=== PATIENT | female | born 1945 | race Asian ===

== ENCOUNTER 2016-09-06 19:28 | Emergency (ER) | payer MEDICARE, OTHER ==
[~2016-09-06] VITALS: Ht 154.9 cm; Wt 58.1 kg
[2016-09-06] MEDS ORDERED: GLUCOTROL XL5 MG PO (21:23)
[2016-09-06] MEDS ORDERED: GLUCOPHAGE XR500 MG PO (21:24)
[2016-09-06] MEDS ORDERED: ZYLOPRIM100 M1 PO (21:26)
[2016-09-06] MEDS ORDERED: LIPITOR80 MG PO (21:27)
[2016-09-06] MEDS ORDERED: NORVASC10 MG PO (21:28)
[2016-09-06] MEDS ORDERED: PRINIVIL20 MG PO (21:29)
[2016-09-06] MEDS ORDERED: TRAZODONE HCL150 MG PO (21:29)
[2016-09-06] MEDS ORDERED: TENORMIN50 MG PO (21:29)
[2016-09-06] MEDS ORDERED: LOW DOSE ASPIRI81 MG PO (21:31)
== END 2016-09-06 20:30 | disposition short-term general hospital (02) ==
LOC: ER 19:28
DX: I10 Essential (primary) hypertension (principal); Z79.82 Long term (current) use of aspirin; Z79.899 Other long term (current) drug therapy; Z79.84 Long term (current) use of oral hypoglycemic drugs; Z88.5 Allergy status to narcotic agent

== ENCOUNTER 2016-09-08 17:33 | Emergency (ER) | payer MEDICARE, OTHER ==
[~2016-09-08] VITALS: Ht 152.4 cm; Wt 58.1 kg
[~2016-09-08 17:33] MED LIST: GLUCOPHAGE XR500 MG PO; GLUCOTROL XL5 MG PO; LIPITOR80 MG PO; LOW DOSE ASPIRI81 MG PO; NORVASC10 MG PO; PRINIVIL20 MG PO; TENORMIN50 MG PO; TRAZODONE HCL150 MG PO; ZYLOPRIM100 M1 PO
== END 2016-09-08 19:15 | disposition short-term general hospital (02) ==
LOC: ER 17:33
DX: S46.811A Strain of other muscles, fascia and tendons at shoulder and upper arm level, right arm, initial encounter (principal); X58.XXXA Exposure to other specified factors, initial encounter; Y92.69 Other specified industrial and construction area as the place of occurrence of the external cause; Y99.0 Civilian activity done for income or pay; E11.9 Type 2 diabetes mellitus without complications; M10.9 Gout, unspecified; E78.5 Hyperlipidemia, unspecified; I10 Essential (primary) hypertension; Z79.84 Long term (current) use of oral hypoglycemic drugs; Z79.899 Other long term (current) drug therapy; Z88.5 Allergy status to narcotic agent

== ENCOUNTER 2016-09-20 19:44 | Emergency (ER) | payer MEDICARE, OTHER ==
[~2016-09-20] VITALS: Ht 152.4 cm; Wt 59.0 kg
== END 2016-09-20 20:58 | disposition short-term general hospital (02) ==
LOC: ER 19:44
DX: I10 Essential (primary) hypertension (principal); F41.9 Anxiety disorder, unspecified; Z79.899 Other long term (current) drug therapy

== ENCOUNTER → 2016-11-10 | Outpatient (CLI) | payer MEDICARE, OTHER | END | disposition short-term general hospital (02) | LOC: CLVASC 10:35 | DX: I73.9 Peripheral vascular disease, unspecified (principal) ==